=== PATIENT | female | born 1945 | race Caucasian/White ===

== ENCOUNTER 2018-10-31 10:52 | Emergency (ER) | payer MEDICARE, BC ==
[2018-10-31 11:53] LABS: CHLORIDE,CL 106 mmol/L (98-107); SODIUM,NA 143 mmol/L (136-145)
[2018-10-31] MEDS ORDERED: predniSONE 20 MG Tab PO ONE (12:48)
--- NOTE | 2018-10-31 12:55 | EDM.PDOC ---
ED HPI GENERAL MEDICAL PROBLEM - General Chief Complaint: General Stated Complaint: Left hip pain Time Seen by Provider: 10/31/18 11:27 Source of Information: Reports: Patient History Limitations: Reports: No Limitations - History of Present Illness INITIAL COMMENTS - FREE TEXT/NARRATIVE: Patient comes to ER complaining of left sciatic pain that has been more problematic this past week. Reports intermittent "pinching" pain in left buttock area on and off for months, but did not experience constant discomfort like this past week. Worsening in intensity. Has subjective numbness down left leg. No loss of bowel or bladder control. 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 She was offered a referral for physical therapy, but no other suggestions were made at that time. Was planning to take car trip to [place] next week. Is now considering a change of plans due to a in the family. No other reported acute changes. No specific injuries or falls preceded complaint. Has not had issues with sciatica previously. - Related Data Allergies Allergy/AdvReac Type Severity Reaction Status Date / Time No Known Allergies Allergy Verified 10/31/18 12:21 Home Meds: Home Meds Cranberry 500 mg PO DAILY 10/31/18 [History] Hydroxychloroquine [Plaquenil] 1 tab PO BID 10/31/18 [History] Leflunomide 20 mg PO DAILY 10/31/18 [History] OXcarbazepine [Trileptal] 300 mg PO BEDTIME 10/31/18 [History] Timolol Maleate [Timoptic 0.5% Ophth Soln] 1 drop EYEBOTH BID 10/31/18 [History] buPROPion HCl [Wellbutrin Xl] 150 mg PO QAM 10/31/18 [History] sulfaSALAzine [sulfaSALAzine DR] 500 mg PO QID 10/31/18 [History] Past Medical History Musculoskeletal History: Reports: RA Psychiatric History: Reports: Anxiety, Bipolar, Depression, Psych Hospitalization(s), Psychosis Social & Family History - Tobacco Use Smoking Status *Q: Former Smoker (quit 30 years ago) - Caffeine Use Caffeine Use: Reports: Coffee - Alcohol Use Alcohol Use History: No Alcohol Use Frequency: Rarely - Recreational Drug Use Recreational Drug Use: No Drug Use in Last 12 Months: No ED ROS GENERAL - Review of Systems Review Of Systems: See Below Constitutional: Reports: No Symptoms HEENT: Reports: No Symptoms, Glasses Cardiovascular: Reports: No Symptoms GI/Abdominal: Reports: No Symptoms. Denies: Stool Incontinence : Reports: No Symptoms. Denies: Incontinence Musculoskeletal: Reports: Back Pain, Leg Pain Skin: Reports: No Symptoms Neurological: Reports: Numbness, Paresthesia, Tingling (left leg). Denies: Confusion, Headache, Trouble Speaking, Weakness, Change in Speech, Gait Disturbance Psychiatric: Reports: No Symptoms Hematologic/Lymphatic: Reports: No Symptoms ED EXAM, GENERAL - Physical Exam Exam: See Below Exam Limited By: No Limitations General Appearance: Alert, WD/WN, Other (sometimes leans to the right and massages gluteal area/upper thigh) Eye Exam: Bilateral Eye: EOMI, PERRL Ears: Normal External Exam Nose: No: Nasal Deformity, Nasal Swelling, Nasal Drainage Throat/Mouth: Normal Lips, Normal Voice, No Airway Compromise Head: Atraumatic, Normocephalic Neck: Supple, Non-Tender, Full Range of Motion Respiratory/Chest: No Respiratory Distress, Lungs Clear, Normal Breath Sounds, No Accessory Muscle Use Cardiovascular: Regular Rate, Rhythm, No Murmur GI/Abdominal: Normal Bowel Sounds, Soft, Non-Tender, No Distention (Female) Exam: Deferred Rectal (Female) Exam: Deferred Back Exam: Paraspinal Tenderness (mild tenderness with palpation of left lower soft tissue just above pelvis), Other (+ straight leg raise on left at 45 degrees). No: CVA Tenderness (L), CVA Tenderness (R), Muscle Spasm, Vertebral Tenderness Neurological: Alert, Oriented, Normal Cognition, Normal Gait, Other (equal tone/ strength bilaterally, subject complaint of numbness in left leg with light touch in thigh area.) Psychiatric: Normal Affect, Normal Mood Skin Exam: Warm, Dry, Intact, Normal Color Course - Vital Signs Last Recorded V/S: Last Vital Signs Temp 36.8 C 10/31/18 11:00 Pulse 63 10/31/18 11:00 Resp 20 10/31/18 11:00 BP 157/74 H 10/31/18 11:00 Pulse Ox 97 10/31/18 11:00 - Orders/Labs/Meds Orders: Active Orders 24 hr Category Date Time Status Hip Min 2V or 3V w Pelvis Lt [CR] Stat Exams 10/31/18 11:05 Taken Lumbar Spine Min 4V [CR] Stat Exams 10/31/18 11:12 Taken Labs: Laboratory Tests 10/31/18 10/31/18 10/31/18 Range/Units 11:25 11:30 12:20 WBC 5.2 (4.0-10.2) K/uL RBC 4.31 (3.77-5.09) M/uL Hgb 13.6 (11.7-15.5) g/dL Hct 41.5 (34.0-46.0) % MCV 96.3 (84.0-98.0) fL MCH 31.6 (28.2-33.3) pg MCHC 32.8 (31.7-36.0) g/dL RDW 12.5 (11.2-14.1) % Plt Count 243 (150-350) K/uL Neut % (Auto) 53.7 (45.0-80.0) % Lymph % (Auto) 30.7 (10.0-50.0) % Becker % (Auto) 12.1 (2.0-14.0) % Eos % (Auto) 2.9 (0.0-5.0) % Baso % (Auto) 0.6 (0.0-2.0) % Neut # (Auto) 2.81 (1.40-7.00) K/uL Lymph # (Auto) 1.60 (0.50-3.50) K/uL Becker # (Auto) 0.63 (0.00-1.00) K/uL Eos # (Auto) 0.15 (0.00-0.50) K/uL Baso # (Auto) 0.03 (0.00-0.20) K/uL Sodium 143 (136-145) mmol/L Potassium 4.0 (3.5-5.1) mmol/L Chloride 106 (98-107) mmol/L Carbon Dioxide 25.8 (21.0-32.0) mmol/L BUN 11 (7-18) mg/dL Creatinine 0.59 (0.51-1.17) mg/dL Est Cr Clr Drug Dosing TNP Estimated GFR (MDRD) > 60 mL/min Glucose 91 (74-106) mg/dL Calcium 9.3 (8.5-10.1) mg/dL Total Bilirubin 0.4 (0.2-1.0) mg/dL AST 20 (15-37) U/L ALT 23 (12-78) U/L Alkaline Phosphatase 87 (46-116) IU/L Total Protein 6.9 (6.4-8.2) g/dL Albumin 3.6 (3.4-5.0) g/dL Specimen Type Urinvoid Urine Color Yellow Urine Appearance Clear Urine pH 7.0 (5.0-9.0) Ur Specific [place] 1.020 (1.005-1.030) Urine Protein Negative (NEGATIVE) mg/dL Urine Glucose (UA) Negative (NEGATIVE) mg/dL Urine Ketones Negative (NEGATIVE) mg/dL Urine Occult Blood Negative (NEGATIVE) Urine Nitrite Negative (NEGATIVE) Urine Bilirubin Negative (NEGATIVE) Urine Urobilinogen 0.2 (0.2-1.0) E.U./dL Ur Leukocyte Esterase Negative (NEGATIVE) Urine RBC 0-5 /HPF Urine WBC Not seen /HPF Ur Epithelial Cells Rare /LPF Other Crystals Rare /HPF Urine Bacteria Not seen (NONE TO FEW) /HPF Meds: Medications Discontinued Medications Generic Name Dose Route Start Last Admin Trade Name Freq PRN Reason Stop Dose Admin Prednisone 20 mg 10/31/18 12:48 Prednisone PO 10/31/18 12:49 ONETIME ONE - Radiology Interpretation Free Text/Narrative:: Xrays of lumbar spine, pelvis, left hip taken. Some degenerative changes noted. - Re-Assessments/Exams Free Text/Narrative Re-Assessment/Exam: 10/31/18 13:31 Patient reports having side effects from medications easily. Narcotics make her sleepy. Prednisone in high doses can cause psychosis. Is not supposed to be taking NSAIDs given her age and other meds she is on that can also affect kidney function. Recommend cautious medication regimen aimed at symptoms relief, including lower dose Prednisone as well as Tramadol and brief Ibuprofen usage. Baseline CBC/Chem completely normal, including renal function. UA also normal. Also recommend MRI of lower spine given the months of intermittent sciatic pain in buttocks and the sudden recent pain flare with intermittent numbness/ paresthesias. Order for MRI provided. Patient is to follow up with primary provider next week for recheck. Patient's daughter has access to CBD oil and has recommended that to the patient. It was discussed that it would be OK for the patient to try CBD oil if she desires. Precautions reviewed. To follow up at ER as needed if there are worsening problems. Departure - Departure Time of Disposition: 12:49 Disposition: Home, Self-Care 01 Condition: Good Clinical Impression: Sciatica of left side - Discharge Information *PRESCRIPTION DRUG MONITORING PROGRAM REVIEWED*: Not Applicable *COPY OF PRESCRIPTION DRUG MONITORING REPORT IN PATIENT CAROL: Not Applicable Instructions: Sciatica, [id number], Tramadol tablets Referrals: Katja Segura NP [Primary Care Provider] - Forms: ED Department Discharge Additional Instructions: Recommend scheduling MRI through your clinic to further evaluate the lower spinal area as we discussed in the ER. OK to take BRIEF course of Ibuprofen or Aleve over the next 3-4 days. See if you can tolerate the Tramadol to help with the pain. Take 1/2 to 1 tablet every 6-8 hours as needed. We will try to avoid excess Prednisone with you given your potential side effects that were experienced on higher doses. You received a 20mg dose today. OK to take the 5mg dose you have at home once a day tomorrow and Thursday. Follow up with your eye provider to have your eye pressures checked next week. OK to consider using OTC CBD oil as discussed in ER. Follow up with your clinic next week. Follow up in the ER as needed if further problems develop. - My Orders Last 24 Hours: My Active Orders 10/31/18 11:05 Hip Min 2V or 3V w Pelvis Lt [CR] Stat 10/31/18 11:12 Lumbar Spine Min 4V [CR] Stat - Assessment/Plan Last 24 Hours: My Active Orders 10/31/18 11:05 Hip Min 2V or 3V w Pelvis Lt [CR] Stat 10/31/18 11:12 Lumbar Spine Min 4V [CR] Stat
== END 2018-10-31 13:30 | disposition home or self-care (01) ==
LOC: LL.ED 10:52
DX: M54.32 Sciatica, left side (principal); F31.9 Bipolar disorder, unspecified; F41.9 Anxiety disorder, unspecified; Z87.891 Personal history of nicotine dependence; Z79.899 Other long term (current) drug therapy
CPT/HCPCS: 36415; 72110; 73502; 80053; 81001; 85025; 99283; A9270

== ENCOUNTER 2019-01-27 07:52 | Day surgery (SDC) | payer MEDICARE, BC ==
[~2019-01-27 07:52] MED LIST: Sodium Chloride 0.9% 10 ML Syringe FLUSH PRN
[2019-01-27] MEDS: Lactated Ringers 1,000 ML IV SCH (08:15)
[2019-01-27] MEDS ORDERED: Propofol 200 MG/20 ML SDV ONE ×2 (08:19→09:10)
--- NOTE | 2019-01-27 09:35 | PCM.HPR ---
H & P Addendum review - H & P Addendum Review Date of Original H & P: 01/21/19 Date Reviewed: 01/27/19 Time Reviewed: 09:00 Patient was Examined: No Changes
--- NOTE | 2019-01-27 09:36 | PCM.OPNOTE ---
- General Post-Op/Procedure Note Date of Surgery/Procedure: 01/27/19 Operative Procedure(s): Colonoscopy Findings: Sig tics Pre Op Diagnosis: FH Colon Ca Post-Op Diagnosis: Same Anesthesia Technique: MAC Primary Surgeon: Merlin Mcnamara Anesthesia Provider: Columba Diallo Complications: None Condition: Good
--- NOTE | 2019-01-27 14:56 | OR ---
Date of Procedure: 01/27/2019 PREOPERATIVE DIAGNOSIS: Family history of colon cancer. POSTOPERATIVE DIAGNOSIS: Sigmoid diverticulosis. PROCEDURE: Colonoscopy. ANESTHESIA: IV sedation. DESCRIPTION OF PROCEDURE: The patient was brought to procedure room where she was placed on her left side and IV sedation administered. Digital rectal exam was performed which was normal. Colonoscope was inserted and advanced to the level of the cecum without difficulty. Cecal position was confirmed by identifying the appendiceal lumen and the ileocecal valve. Prep was good and surfaces were well visualized. Upon withdrawing the scope, the ascending, transverse, and descending colon were normal in appearance. Sigmoid colon had a few diverticula present. Rectum was normal and retroflexion was normal. Air was removed and the scope withdrawn. The patient tolerated the procedure well and returned to Recovery in stable condition. The patient could consider another screening colonoscopy in 5 years medically. ENDY MOURA MD /[id number]
== END 2019-01-27 10:35 | disposition home or self-care (01) ==
LOC: LL.SDS 07:52
PROVIDERS: ATTEND Surgery
DX: Z12.11 Encounter for screening for malignant neoplasm of colon (principal); K57.30 Diverticulosis of large intestine without perforation or abscess without bleeding; M06.9 Rheumatoid arthritis, unspecified; F32.9 Major depressive disorder, single episode, unspecified; M81.0 Age-related osteoporosis without current pathological fracture; Z80.0 Family history of malignant neoplasm of digestive organs; Z79.899 Other long term (current) drug therapy
CPT/HCPCS: 00812; G0105; J2704; J7120

== ENCOUNTER 2024-05-26 13:33 | Inpatient (IN) | payer MEDICARE ==
[2024-05-26] MEDS: Ampicillin/Sulbactam Na 3 GM in Sodium Chloride 0.9% 100 ML IV SCH (16:14)
[2024-05-26] MEDS: Timolol Maleate 0.5% Ophth Soln 5 ML Bottle EYEBOTH SCH ×2 (17:12→21:05)
[2024-05-26] MEDS: Brimonidine 0.2% Ophth Soln 5 ML Bottle EYELF SCH ×2 (18:01→21:05)
[2024-05-26] MEDS ORDERED: Polyvinyl Alcohol 1.4% Ophth Soln 15 ML Bottle EYEBOTH PRN (19:25)
[2024-05-26] MEDS: LUMIGAN EYEBOTH SCH (21:05)
[2024-05-26] MEDS: Latanoprost 0.005% Ophth Soln 2.5 ML Bottle EYEBOTH SCH (21:07)
[2024-05-26] MEDS: Rosuvastatin 10 MG Tab PO SCH (21:07)
[2024-05-26] MEDS: OXcarbazepine 300 MG Tab PO SCH (21:07)
[2024-05-26] MEDS: SYSTANE EYEBOTH PRN (21:47)
[2024-05-26] MEDS: Sodium Chloride 0.9% 100 ML IV SCH (22:09)
[2024-05-27 07:17] LABS: BASOPHILS ABSOLUTE AUTO 0.02 K/uL (0.00-0.20); BASOPHILS PERCENT AUTO 0.3 % (0.0-2.0); EOSINOPHILS ABSOLUTE AUTO 0.04 K/uL (0.00-0.50); EOSINOPHILS PERCENT AUTO 0.6 % (0.0-5.0); HEMATOCRIT 40.3 % (34.0-46.0); HEMOGLOBIN 13.1 g/dL (11.7-15.5); LYMPHOCYTES ABSOLUTE AUTO 3.99 K/uL (0.50-3.50); LYMPHOCYTES PERCENT AUTO 64.8 % (10.0-50.0); MEAN CORPUSCULAR HEMOGLOBIN 30.1 pg (28.2-33.3); MEAN CORPUSCULAR HGB CONC 32.5 g/dL (31.7-36.0); MEAN CORPUSCULAR VOLUME 92.6 fL (84.0-98.0); MONOCYTES ABSOLUTE AUTO 0.94 K/uL (0.00-1.00); MONOCYTES PERCENT AUTO 15.3 % (2.0-14.0); NEUTROPHILS ABSOLUTE AUTO 1.17 K/uL (1.40-7.00); PLATELET COUNT,PLT 166 K/uL (150-350); RED BLOOD CELL COUNT 4.35 M/uL (3.77-5.09); RED CELL DISTRIBUTION WIDTH 13.2 % (11.2-14.1); WHITE BLOOD CELL COUNT,WBC 6.2 K/uL (4.0-10.2)
[2024-05-27] MEDS: buPROPion 150 MG Tab.ER PO SCH (07:23)
[2024-05-27] MEDS: Polyvinyl Alcohol 1.4% Ophth Soln 15 ML Bottle EYEBOTH SCH (08:20)
[2024-05-27] MEDS: VANCOmycin 1 GM in Sodium Chloride 0.9% 250 ML IV SCH (13:26)
[2024-05-27] MEDS: Sodium Chloride 0.9% 100 ML IV SCH (15:50)
[2024-05-27] MEDS: cefTRIAXone 2 GM Vial IVPUSH SCH (15:51)
[2024-05-27] MEDS: Sodium Chloride 0.9% 10 ML Syringe FLUSH PRN (16:08)
[2024-05-27] MEDS: Ampicillin/Sulbactam Na 3 GM in Sodium Chloride 0.9% 100 ML IV SCH (16:11)
[2024-05-28 08:00] LABS: BASOPHILS ABSOLUTE AUTO 0.03 K/uL (0.00-0.20); BASOPHILS PERCENT AUTO 0.5 % (0.0-2.0); EOSINOPHILS ABSOLUTE AUTO 0.12 K/uL (0.00-0.50); EOSINOPHILS PERCENT AUTO 1.8 % (0.0-5.0); HEMATOCRIT 41.3 % (34.0-46.0); HEMOGLOBIN 13.4 g/dL (11.7-15.5); IMMATURE GRAN ABSOLUTE AUTO 0.01 10^3/uL (0.00-0.04); IMMATURE GRAN PERCENT AUTO 0.2 % (0.0-0.4); LYMPHOCYTES ABSOLUTE AUTO 4.24 K/uL (0.50-3.50); LYMPHOCYTES PERCENT AUTO 65.1 % (10.0-50.0); MEAN CORPUSCULAR HEMOGLOBIN 30.2 pg (28.2-33.3); MEAN CORPUSCULAR HGB CONC 32.4 g/dL (31.7-36.0); MONOCYTES ABSOLUTE AUTO 1.03 K/uL (0.00-1.00); MONOCYTES PERCENT AUTO 15.8 % (2.0-14.0); NEUTROPHILS ABSOLUTE AUTO 1.08 K/uL (1.40-7.00); NEUTROPHILS PERCENT AUTO 16.6 % (45.0-80.0); PLATELET COUNT,PLT 188 K/uL (150-350); RED BLOOD CELL COUNT 4.44 M/uL (3.77-5.09); RED CELL DISTRIBUTION WIDTH 13.4 % (11.2-14.1); WHITE BLOOD CELL COUNT,WBC 6.5 K/uL (4.0-10.2)
[2024-05-28] MEDS: Lidocaine 1% 5 ML VIAL INJECT ONE (08:12)
[2024-05-28 08:17] LABS: ALBUMIN 3.2 g/dL (3.4-5.0); BILIRUBIN TOTAL 0.4 mg/dL (0.2-1.0); CALCIUM 8.7 mg/dL (8.5-10.1); CARBON DIOXIDE,CO2 26.6 mmol/L (21.0-32.0); CREATININE 0.61 mg/dL (0.51-1.17); EST CRCL DRUG DOSING (CG) 56.43 mL/min; POTASSIUM,K 4.3 mmol/L (3.5-5.1); PROTEIN TOTAL,TP 6.3 g/dL (6.4-8.2)
[2024-05-28 08:21] LABS: ANION GAP 13.7 meq/L (7-15)
[2024-05-28] MEDS: Lactobacillus Rhamnosus GG (Probiotic) Cap PO SCH (09:58)
[2024-05-29 08:47] LABS: BASOPHILS ABSOLUTE AUTO 0.03 K/uL (0.00-0.20); BASOPHILS PERCENT AUTO 0.5 % (0.0-2.0); EOSINOPHILS ABSOLUTE AUTO 0.12 K/uL (0.00-0.50); HEMATOCRIT 43.5 % (34.0-46.0); IMMATURE GRAN ABSOLUTE AUTO 0.01 10^3/uL (0.00-0.04); IMMATURE GRAN PERCENT AUTO 0.2 % (0.0-0.4); LYMPHOCYTES ABSOLUTE AUTO 3.93 K/uL (0.50-3.50); LYMPHOCYTES PERCENT AUTO 65.4 % (10.0-50.0); MEAN CORPUSCULAR HEMOGLOBIN 29.9 pg (28.2-33.3); MEAN CORPUSCULAR HGB CONC 32.2 g/dL (31.7-36.0); MEAN CORPUSCULAR VOLUME 92.9 fL (84.0-98.0); MONOCYTES ABSOLUTE AUTO 1.01 K/uL (0.00-1.00); MONOCYTES PERCENT AUTO 16.8 % (2.0-14.0); NEUTROPHILS ABSOLUTE AUTO 0.91 K/uL (1.40-7.00); NEUTROPHILS PERCENT AUTO 15.1 % (45.0-80.0); PLATELET COUNT,PLT 178 K/uL (150-350); RED BLOOD CELL COUNT 4.68 M/uL (3.77-5.09); RED CELL DISTRIBUTION WIDTH 13.2 % (11.2-14.1)
[2024-05-29 09:06] LABS: ALBUMIN 3.4 g/dL (3.4-5.0); ANION GAP 10.5 meq/L (7-15); BILIRUBIN TOTAL 0.5 mg/dL (0.2-1.0); CALCIUM 8.9 mg/dL (8.5-10.1); CARBON DIOXIDE,CO2 27.5 mmol/L (21.0-32.0); CREATININE 0.63 mg/dL (0.51-1.17); EST CRCL DRUG DOSING (CG) 54.64 mL/min; POTASSIUM,K 4.1 mmol/L (3.5-5.1); PROTEIN TOTAL,TP 6.9 g/dL (6.4-8.2)
[2024-05-30] MEDS: Loperamide 2 MG Tab PO ONE ×2 (04:15→07:29)
[2024-05-30 07:50] LABS: BASOPHILS ABSOLUTE AUTO 0.04 K/uL (0.00-0.20); BASOPHILS PERCENT AUTO 0.8 % (0.0-2.0); EOSINOPHILS ABSOLUTE AUTO 0.16 K/uL (0.00-0.50); EOSINOPHILS PERCENT AUTO 3.1 % (0.0-5.0); HEMATOCRIT 41.6 % (34.0-46.0); HEMOGLOBIN 13.5 g/dL (11.7-15.5); IMMATURE GRAN ABSOLUTE AUTO 0.01 10^3/uL (0.00-0.04); IMMATURE GRAN PERCENT AUTO 0.2 % (0.0-0.4); LYMPHOCYTES ABSOLUTE AUTO 3.24 K/uL (0.50-3.50); LYMPHOCYTES PERCENT AUTO 62.2 % (10.0-50.0); MEAN CORPUSCULAR HEMOGLOBIN 30.3 pg (28.2-33.3); MEAN CORPUSCULAR HGB CONC 32.5 g/dL (31.7-36.0); MEAN CORPUSCULAR VOLUME 93.3 fL (84.0-98.0); MONOCYTES ABSOLUTE AUTO 0.84 K/uL (0.00-1.00); MONOCYTES PERCENT AUTO 16.1 % (2.0-14.0); NEUTROPHILS ABSOLUTE AUTO 0.92 K/uL (1.40-7.00); NEUTROPHILS PERCENT AUTO 17.6 % (45.0-80.0); PLATELET COUNT,PLT 186 K/uL (150-350); RED BLOOD CELL COUNT 4.46 M/uL (3.77-5.09); RED CELL DISTRIBUTION WIDTH 13.2 % (11.2-14.1); WHITE BLOOD CELL COUNT,WBC 5.2 K/uL (4.0-10.2)
[2024-05-30 08:13] LABS: ALBUMIN 3.4 g/dL (3.4-5.0); ANION GAP 9.2 meq/L (7-15); BILIRUBIN TOTAL 0.5 mg/dL (0.2-1.0); CARBON DIOXIDE,CO2 27.8 mmol/L (21.0-32.0); CREATININE 0.56 mg/dL (0.51-1.17); EST CRCL DRUG DOSING (CG) 61.47 mL/min; PROTEIN TOTAL,TP 6.8 g/dL (6.4-8.2)
== END 2024-05-30 12:45 | disposition home or self-care (01) | DRG 603 ==
LOC: LL.MS 14:20
PROVIDERS: ADMIT Emergency Medicine; ATTEND Emergency Medicine
DX: L03.213 Periorbital cellulitis (principal); D84.9 Immunodeficiency, unspecified; H40.9 Unspecified glaucoma; M06.9 Rheumatoid arthritis, unspecified; F31.9 Bipolar disorder, unspecified; Z66 Do not resuscitate; Z90.89 Acquired absence of other organs; Z79.1 Long term (current) use of non-steroidal anti-inflammatories (NSAID); Z79.899 Other long term (current) drug therapy; Z98.890 Other specified postprocedural states; Z98.51 Tubal ligation status
CPT/HCPCS: 36415; 80053; 80202; 85025; 87070; 87205; 99223; 99232; 99233; 99239; A9270-GY; J0295; J0696; J3490; J7050

== ENCOUNTER 2024-07-14 11:55 | Day surgery (SDC) | payer MEDICARE ==
[~2024-07-14 11:55] MED LIST changes: +Midazolam 1 MG/ML 2 ML SDV ONE; +Propofol 200 MG/20 ML SDV ONE; -Sodium Chloride 0.9% 10 ML Syringe FLUSH PRN
[2024-07-14] MEDS ORDERED: Sodium Chloride 0.9% 10 ML Syringe FLUSH PRN (12:00)
[2024-07-14] MEDS: Lactated Ringers 1,000 ML IV SCH (12:27)
[2024-07-14] MEDS ORDERED: Propofol 200 MG/20 ML SDV IV ONE (12:45)
== END 2024-07-14 14:22 | disposition home or self-care (01) ==
LOC: LL.SDS 11:55
PROVIDERS: ATTEND Surgery
DX: Z12.11 Encounter for screening for malignant neoplasm of colon (principal); D12.5 Benign neoplasm of sigmoid colon; D12.2 Benign neoplasm of ascending colon; D12.8 Benign neoplasm of rectum; K57.30 Diverticulosis of large intestine without perforation or abscess without bleeding; Z80.0 Family history of malignant neoplasm of digestive organs; M05.9 Rheumatoid arthritis with rheumatoid factor, unspecified; E78.2 Mixed hyperlipidemia; F31.9 Bipolar disorder, unspecified; Z87.891 Personal history of nicotine dependence
CPT/HCPCS: 00811; 88305; 99100; J2250; J2704; J7120